=== PATIENT | female | born 1995 | race Asian ===

== ENCOUNTER 2017-06-21 08:48 | Emergency (ER) | payer OTHER ==
[2017-06-21 09:01] VITALS: BP 126/81; PULSE 91; RESP 18; TEMP 98.1; O2SAT 97
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
[2017-06-21] MEDS ORDERED: AZITHROMYCIN 250 MG TAB PO ONE (10:30)
== END 2017-06-21 13:00 | disposition home or self-care (01) ==
LOC: EEVIPCON 08:48
DX: T74.21XA Adult sexual abuse, confirmed, initial encounter (principal); Y07.9 Unspecified perpetrator of maltreatment and neglect
CPT/HCPCS: J0696